=== PATIENT | male | born 1950 | race Caucasian/White ===

== ENCOUNTER 2018-05-24 14:53 | Emergency (ER) | payer MEDICARE, OTHER ==
[2018-05-24] MEDS: Bacitracin/Neomycin/Polymyxin B Oint 0.9 GM U/D Packet TOP ONE (16:05)
--- NOTE | 2018-05-24 16:10 | EDM.PDOC ---
ED HPI GENERAL MEDICAL PROBLEM - General Chief Complaint: Laceration Stated Complaint: laceration Time Seen by Provider: 05/24/18 15:05 Source of Information: Reports: Patient History Limitations: Reports: No Limitations - History of Present Illness INITIAL COMMENTS - FREE TEXT/NARRATIVE: Patient stabbed self in left palm at base of thumb while trying to take skin off of deer antlers. Immediate bleeding. No numbness/tingling or loss of function noted. No tendon injury. No other injury. Tetanus is not up to date. - Related Data Allergies Allergy/AdvReac Type Severity Reaction Status Date / Time No Known Allergies Allergy Verified 11/30/15 08:10 Home Meds: Home Meds Aspirin [Halfprin] 81 mg PO DAILY 11/29/15 [History] Hydrocortisone [Anusol-HC] 1 applic RECTAL BID PRN 11/29/15 [History] Losartan/Hydrochlorothiazide [Losartan-HCTZ 50-12.5 MG] 0.5 tab PO DAILY [History] Metoprolol Succinate 100 mg PO BID 11/29/15 [History] Simvastatin 20 mg PO BEDTIME 11/29/15 [History] Triamcinolone Acetonide [Kenalog 0.1% Crm] 1 applic TOP BID PRN 11/29/15 [ History] Cephalexin [Keflex] 500 mg PO BID #12 capsule 05/24/18 [Rx] Past Medical History HEENT History: Reports: Hard of Hearing Cardiovascular History: Reports: High Cholesterol, Hypertension, PVD - Past Surgical History GI Surgical History: Reports: Colonoscopy, Other (See Below) Musculoskeletal Surgical History: Reports: Shoulder Surgery, Other (See Below) Social & Family History - Tobacco Use Smoking Status *Q: Former Smoker Used Tobacco, but Quit: Yes Month/Year Tobacco Last Used: Quit in 2006 Second Hand Smoke Exposure: No - Caffeine Use Caffeine Use: Reports: Coffee, Soda - Alcohol Use Days Per Week of Alcohol Use: 7 Number of Drinks Per Day: 2 Total Drinks Per Week: 14 - Recreational Drug Use Recreational Drug Use: No ED ROS GENERAL - Review of Systems Review Of Systems: ROS reveals no pertinent complaints other than HPI. ED EXAM, SKIN/RASH Exam: See Below Exam Limited By: No Limitations General Appearance: Alert, WD/WN, No Apparent Distress Eye Exam: Bilateral Eye: EOMI, PERRL Head: Atraumatic, Normocephalic Respiratory/Chest: No Respiratory Distress Peripheral Pulses: 2+: Radial (L) Extremities: Other (laceration to palm of left hand. Bleeding. Tendon function appears intact. Hand/fingers appear NVI) Neurological: Alert, Oriented, Normal Cognition, Normal Gait, No Motor/Sensory Deficits Psychiatric: Normal Affect, Normal Mood Skin: Warm, Dry, Wound/Incision Location, Skin: Upper Extremity, Left ED SKIN PROCEDURES - Laceration/Wound Repair Left Ventral Hand Lac/Wound length In cm: 3 Appearance: Muscle, Linear, Clean Distal NVT: Neuro & Vascular Intact, No Tendon Injury Anesthetic Type: Local Local Anesthesia - Lidocaine (Xylocaine): 1% Plain Local Anesthetic Volume: Other (12 cc ultimately used for wound margins and subsequently deep tissue) Skin Prep: Providone-Iodine (Betadine) Exploration/Debridement/Repair: Wound Explored, No Foreign Material Found, Other (Patient had several small aterioles that were activity bleeding. Difficult to fully visualize wound at base. ) Suture Size: 3-0 # of Sutures: 4 Suture Type: Nylon, Interrupted Suture Size: 4-0 # of Sutures: 5 Repaired with: Chromic Drain Placement: No Sterile Dressing Applied: Nurse Tetanus Status Addressed: Yes Progress/Comments: Multiple deep sutures placed in attempt to ligate bleeding vessels. Course - Vital Signs Last Recorded V/S: Last Vital Signs Temp 36.6 C 05/24/18 15:02 Pulse 64 05/24/18 15:02 Resp 18 05/24/18 15:02 BP 168/100 H 05/24/18 15:02 Pulse Ox 97 05/24/18 15:02 - Orders/Labs/Meds Orders: Active Orders 24 hr Category Date Time Status Vaccines to be Administered [RC] PER UNIT ROUTINE Care 05/24/18 15:15 Active Meds: Medications Discontinued Medications Generic Name Dose Route Start Last Admin Trade Name Freq PRN Reason Stop Dose Admin Diphtheria/Tetanus/Acell Pertussis 0.5 ml 05/24/18 15:15 05/24/18 16:15 Adacel IM 05/24/18 15:16 0.5 ml .ONCE ONE Administration Lidocaine HCl 10 ml 05/24/18 15:13 05/24/18 15:20 Xylocaine-Mpf 1% INJECT 05/24/18 15:14 10 ml ONETIME ONE Administration Lidocaine HCl 10 ml 05/24/18 15:35 05/24/18 15:40 Xylocaine-Mpf 1% INJECT 05/24/18 15:36 10 ml ONETIME ONE Administration Neomycin/Polymyxin/Bacitracin 2 each 05/24/18 15:14 05/24/18 16:05 Triple Antibiotic Oint TOP 05/24/18 15:15 2 each ONETIME ONE Administration - Re-Assessments/Exams Free Text/Narrative Re-Assessment/Exam: 05/24/18 16:16 Wound closed with both deep and superficial sutures. Patient had several bleeds identified that appeared arterial. These were significantly improved. There continued to be a small amount of oozing blood however. No additional bleeding noted once skin sutures place. Patient had pressure bandage applied and was observed for a half hour afterwards to look for any unusual swelling of injured area that would indicate continued bleeding. Wound care was discussed with patient. Would recommend wound check tomorrow at clinic. If acute sudden swelling is noted within the next 24 hours patient is to contact us immediately. Wound then plan on referral to surgeon to have wound re-evaluated. Precautions reviewed prior to discharge. Patient is in agreement with plan. Keflex 500mg sent home with patient for antibiotic coverage. Patient has hypertension. Elevation noted today likely reflects situational stress due to injury. However, patient encourage to have BP checked intermittently over the next few weeks to observe for trends/changes and persistent elevation. Departure - Departure Time of Disposition: 16:23 Disposition: Home, Self-Care 01 Condition: Good Clinical Impression: Laceration of left hand Qualifiers: Encounter type: initial encounter Foreign body presence: without foreign body Qualified Code(s): S61.412A - Laceration without foreign body of left hand, initial encounter HTN (hypertension) Qualifiers: Hypertension type: essential hypertension Qualified Code(s): I10 - Essential ( primary) hypertension - Discharge Information Instructions: Cephalexin tablets or capsules, Laceration Care, Adult, Easy-to- Read, Stitches, Froylan, or Adhesive Wound Closure, [id number] Referrals: Roxana Galvez PA [Primary Care Provider] - Forms: ED Department Discharge Additional Instructions: Follow up wound check recommended tomorrow afternoon either at clinic or with Gita (your nurse from today, she is here from 9-5pm tomorrow) Take antibiotics as prescribed. Watch closely for any sudden changes that indicate new bleeding in wound, such as actual bleeding from incision, or sudden increase in swelling of sutured area. Follow up as needed if you have any other other problems, such as signs of infection or other problems with injured area. Get BP rechecked several times over the next week. Follow up if still elevated. - My Orders Last 24 Hours: My Active Orders 05/24/18 15:15 Vaccines to be Administered [RC] PER UNIT ROUTINE - Assessment/Plan Last 24 Hours: My Active Orders 05/24/18 15:15 Vaccines to be Administered [RC] PER UNIT ROUTINE
[2018-05-24] MEDS: Diphtheria,Pertussis(Acell),Tetanus Vaccine 0.5 ML SDV IM ONE (16:15)
[2018-05-24 20:13] VITALS: BP 152/86
== END 2018-05-24 16:45 | disposition home or self-care (01) ==
LOC: LL.ED 14:53
DX: S61.412A Laceration without foreign body of left hand, initial encounter (principal); I10 Essential (primary) hypertension; Z23 Encounter for immunization; E78.00 Pure hypercholesterolemia, unspecified; Z87.891 Personal history of nicotine dependence; Z79.82 Long term (current) use of aspirin; W26.9XXA Contact with unspecified sharp object(s), initial encounter; Y93.E9 Activity, other interior property and clothing maintenance
CPT/HCPCS: 12002; 12042; 90471; 90715; 99283

== ENCOUNTER 2018-12-25 15:46 | Emergency (ER) | payer OTHER, MEDICARE ==
[2018-12-25] MEDS ORDERED: Ondansetron 4 MG Tab.DIS PO ONE (16:47)
[2018-12-25] MEDS ORDERED: Morphine 10 MG/ML Syringe IM ONE (16:47)
[2018-12-25] MEDS ORDERED: Ketorolac 60 MG/2 ML SDV IM ONE (16:48)
--- NOTE | 2018-12-25 17:41 | EDM.PDOC ---
ED HPI GENERAL MEDICAL PROBLEM - General Chief Complaint: General Stated Complaint: R ankle pain Time Seen by Provider: 12/25/18 16:20 Source of Information: Reports: Patient History Limitations: Reports: No Limitations (Patient slipped on ice and injured right ankle just prior to presenting to ER) - History of Present Illness INITIAL COMMENTS - FREE TEXT/NARRATIVE: Patient slipped on ice and injured right ankle just prior to coming to ER for evaluation. Denies other injuries. No numbness/tingling of right foot/leg. Right Ankle Pain Score (Numeric/FACES): 10 - Related Data Allergies Allergy/AdvReac Type Severity Reaction Status Date / Time No Known Allergies Allergy Verified 12/25/18 15:58 Home Meds: Home Meds Aspirin [Halfprin] 81 mg PO DAILY 11/29/15 [History] Losartan/Hydrochlorothiazide [Losartan-HCTZ 50-12.5 MG] 1 tab PO DAILY 11/29/15 [History] Metoprolol Succinate 100 mg PO BID 11/29/15 [History] Simvastatin [Zocor] 40 mg PO BEDTIME 12/25/18 [History] traMADol [Ultram] 50 mg PO Q6H PRN #12 tab 12/25/18 [Rx] Past Medical History HEENT History: Reports: Hard of Hearing Cardiovascular History: Reports: High Cholesterol, Hypertension, PVD - Past Surgical History GI Surgical History: Reports: Colonoscopy, Other (See Below) Musculoskeletal Surgical History: Reports: Shoulder Surgery, Other (See Below) Social & Family History - Tobacco Use Smoking Status *Q: Former Smoker Used Tobacco, but Quit: Yes Month/Year Tobacco Last Used: 1 - Caffeine Use Caffeine Use: Reports: Coffee, Energy Drinks - Recreational Drug Use Recreational Drug Use: No ED ROS GENERAL - Review of Systems Review Of Systems: ROS reveals no pertinent complaints other than HPI. ED EXAM, GENERAL - Physical Exam Exam: See Below Exam Limited By: No Limitations General Appearance: Alert, WD/WN, No Apparent Distress Eye Exam: Bilateral Eye: EOMI, PERRL Head: Atraumatic, Normocephalic Neck: Supple Respiratory/Chest: No Respiratory Distress Peripheral Pulses: 1+: Dorsalis Pedis (R) GI/Abdominal: Soft (Male) Exam: Deferred Rectal (Males) Exam: Deferred Back Exam: No: Muscle Spasm, Paraspinal Tenderness, Vertebral Tenderness Extremities: Normal Capillary Refill, Other (deformity right ankle noted, tender with palpation medial and lateral ankle. Skin intact. Brisk cap refill of foot/toes on right. 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 ) Neurological: Alert, Oriented, Normal Cognition Psychiatric: Normal Affect, Normal Mood Skin Exam: Warm, Dry, Intact. No: Ecchymosis, Erythema, Increased Warmth, Pallor ED GENERAL MEDICAL PROCEDURES - Joint Reduction Site: Other (right ankle) Pre-procedure NV status: Normal Post-procedure NV status: Normal Technique: Traction/Counter Traction Number of Attempts: 2 Post-Reduction Imaging: Other (No significant change noted, position is acceptable, NVI. Splint applied) - Splinting Right Lower Extremity Splint Site: right ankle Pre-procedure NV status: Normal Post-procedure NV status: Normal Splint Material: Fiberglass Splint Design: Stirrup, Posterior Applied & Form Fitted By: Provider Provider Post-Splint Application NV Check: NV Status Normal, Good Position Complications: No Complication Description: None Course - Vital Signs Last Recorded V/S: Last Vital Signs Temp 35.8 C 12/25/18 15:47 Pulse 68 12/25/18 17:30 Resp 16 12/25/18 17:30 BP 155/78 H 12/25/18 17:30 Pulse Ox 99 12/25/18 17:15 - Orders/Labs/Meds Orders: Active Orders 24 hr Category Date Time Status Ankle 2V Rt [CR] Stat Exams 12/25/18 18:33 Ordered Ankle Min 3V Rt [CR] Stat Exams 12/25/18 15:54 Taken Meds: Medications Discontinued Medications Generic Name Dose Route Start Last Admin Trade Name Freq PRN Reason Stop Dose Admin Ketorolac Tromethamine 60 mg 12/25/18 16:48 12/25/18 17:07 Toradol IM 12/25/18 16:49 60 mg ONETIME ONE Administration Morphine Sulfate 5 mg 12/25/18 16:47 12/25/18 17:09 Morphine IM 12/25/18 16:48 5 mg ONETIME ONE Administration Ondansetron HCl 4 mg 12/25/18 16:47 12/25/18 17:07 Zofran Odt PO 12/25/18 16:48 4 mg ONETIME ONE Administration - Re-Assessments/Exams Free Text/Narrative Re-Assessment/Exam: Xray confirmed fracture of right distal fibula/mild displacement. Widening of tibiotalar space and syndesmosis per Radiology. Tiny fracture fragments within medial malleolus and talus. Patient received MS/Toradol for pain. Ankle reduced and splinted. Discussed patient with from [facility] (patient requested follow up through [facility]) and he feels that the injury will likely require surgery. Patient is to follow up with him Friday or Friday of next week. Precautions reviewed with patient prior to discharge. Departure - Departure Time of Disposition: 19:00 Disposition: Home, Self-Care 01 Condition: Good Clinical Impression: Closed right ankle fracture Qualifiers: Encounter type: initial encounter Qualified Code(s): S82.891A - Other fracture of right lower leg, initial encounter for closed fracture - Discharge Information *PRESCRIPTION DRUG MONITORING PROGRAM REVIEWED*: Not Applicable *COPY OF PRESCRIPTION DRUG MONITORING REPORT IN PATIENT ZACK: Not Applicable Prescriptions: traMADol [Ultram] 50 mg PO Q6H PRN #12 tab PRN Reason: Pain Instructions: Crutch Use, Adult, [id number], Cast or Splint Care, Adult, Easy -to-Read Referrals: Renee Hutson PA-C [Primary Care Provider] - Forms: ED Department Discharge Additional Instructions: Avoid weight bearing on injured ankle. Use your crutches! Tylenol ok to take for pain. You may also use the Tramadol prescribed for you for pain as needed. Elevate foot to help with comfort. Follow up Friday or Friday with from [facility] at Ortho walk-in clinic in [place]. You will likely need to have surgery. Avoid aspirin/ibuprofen/motrin/aleve until after surgery. Follow up otherwise as needed if you have problems. - My Orders Last 24 Hours: My Active Orders 12/25/18 15:54 Ankle Min 3V Rt [CR] Stat 12/25/18 18:33 Ankle 2V Rt [CR] Stat - Assessment/Plan Last 24 Hours: My Active Orders 12/25/18 15:54 Ankle Min 3V Rt [CR] Stat 12/25/18 18:33 Ankle 2V Rt [CR] Stat
[2018-12-25 17:58] VITALS: BP 155/78
== END 2018-12-25 19:25 | disposition home or self-care (01) ==
LOC: LL.ED 15:46
DX: S82.831A Other fracture of upper and lower end of right fibula, initial encounter for closed fracture (principal); E78.00 Pure hypercholesterolemia, unspecified; I10 Essential (primary) hypertension; Z87.891 Personal history of nicotine dependence; Z79.82 Long term (current) use of aspirin; Z79.899 Other long term (current) drug therapy; W00.0XXA Fall on same level due to ice and snow, initial encounter
CPT/HCPCS: 27788; 73600-RT; 73610-RT; 96372; 99284; A9270-GY; J1885; J2270